=== PATIENT | female | born 1995 | race Caucasian/White ===

== ENCOUNTER 2018-02-14 05:04 | Emergency (ER) | payer OTHER, SELFPAY ==
[2018-02-14 06:50] LABS: Absolute Lymphocytes (CBC) 1.9 K/uL (0.7-4.9); Absolute Monocytes 0.6 K/uL (0.1-1.3); Absolute Neutrophil 3.5 K/uL (1.8-8.0); Eosinophils % 1.9 % (0-4.4); Hematocrit 39.2 % (36.0-45.0); Lymphocytes % 30.8 % (15.3-44.8); MCH 29.7 pg (27.0-35.0); MCV 89.6 fL (80-100); MPV 8.2 fL (7.6-11.3); Monocytes % 9.3 % (3.3-12.3); RBC Red Blood Cell Count 4.38 M/uL (3.86-4.86)
[2018-02-14] MEDS ORDERED: NA CHLORIDE 0.9% 1,000 ML ONE (06:53)
[2018-02-14 07:04] LABS: Bicarbonate 29 mEq/L (21-31); Glucose Level 68 mg/dL (65-120); Lipase 17 U/L (22-51); Potassium 3.5 mEq/L (3.6-5.0); Sodium Level 139 mEq/L (135-145)
[2018-02-14 07:09] LABS: Urine Bacteria <20 /HPF (<20); Urine RBC <5 /HPF (NONE SEEN)
[2018-02-14 07:10] LABS: ALT/SGPT 14 IU/L (10-60); AST/SGOT 17 IU/L (10-42); Albumin 4.4 g/dL (3.2-5.5); Alkaline Phosphatase 52 IU/L (42-121); Amylase Level 43 U/L (28-100); BUN Blood Urea Nitrogen 13 mg/dL (6-20); Bilirubin Direct < 0.1 mg/dL (0-0.2); Bilirubin Total 0.4 mg/dL (0.3-1.2); Glomerular Filtration Rate > 90 mL/min (=/>90); Protein, Total 7.6 g/dL (6.0-8.3)
[2018-02-14 07:10] LABS: Urine Culture Reflex Order NOT NEEDED
[2018-02-14] MEDS ORDERED: ONDANSETRON 4 MG/2 ML VIAL ONE (07:11)
[2018-02-14] MEDS ORDERED: CYCLOBENZAPRINE 10 MG TAB ONE (07:11)
[2018-02-14] MEDS ORDERED: KETOROLAC 30 MG/ML INJ ONE (07:17)
--- NOTE | 2018-02-14 08:21 | RAD REPORT ---
EXAM DESCRIPTION: CT - Stone Protocol - 02/14/2018 7:56 am CLINICAL HISTORY: Abdominal pain. Right flank pain COMPARISON: 2012 TECHNIQUE: Computed axial tomography of the abdomen pelvis was obtained without oral or IV contrast. Lack of IV and oral contrast limits evaluation of solid organs, bowel, and vessels. Coronal reformat radha images were obtained and reviewed. All CT scans are performed using dose optimization technique as appropriate and may include automated exposure control or mA/KV adjustment according to patient size. FINDINGS: A renal calculus is not seen. An ureteral calculus is not noted. A bladder calculus is not present. The liver, spleen, pancreas and adrenals appear grossly normal. A small umbilical hernia is seen. There is no evidence of diverticulitis. The appendix appears normal. A 4.3 centimeter left ovarian cy stic mass is present. Small amount of free fluid is seen IMPRESSION: Negative for a genitourinary calculus 4.3 centimeter left ovarian cystic mass may represent an ovarian cyst or endometrioma. Follow up ultr asound in a couple months is recommended to assess stability
[2018-02-14] MEDS ORDERED: POTASSIUM 25 MEQ EFFERV TAB ONE (09:02)
[2018-02-14 09:36] LABS: Urine Blood NEGATIVE (NEG); Urine Glucose NEGATIVE (NEG); Urine Protein NEGATIVE (NEG); Urine Specific Gravity >1.030 (1.005-1.030); Urine pH 5.5 (5.0-7.0)
--- NOTE | 2018-02-14 10:47 | EDPHYS ---
Physician Documentation [facility] Name: Mary Lou Garcia Age: 22 yrs Sex: Female : 1995 Arrival Date: 02/14/2018 Time: 05:07 Bed 6 Private MD: ED Physician Mino Alonso HPI: 02/14 06:25 This 22 yrs old Female presents to ER via Ambulatory with complaints of Back cp Pain. 06:25 The patient presents with pain that is acute, with no known mechanism of injury. cp 06:25 The symptoms are located in the lumbar area and right low back. cp 06:25 Onset: The symptoms/episode began/occurred 3 day(s) ago. cp 06:25 The pain radiates to the right leg. Associated signs and symptoms: Pertinent negatives: cp abdominal pain, chest pain, constipation, dysuria, fever, incontinence, numbness, urinary retention, weakness. The problem was sustained from unknown cause. 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 - Social history:: Smoking status: unknown. ROS: 06:30 Constitutional: Negative for body aches, chills, fever, poor PO intake. cp 06:30 Eyes: Negative for injury, pain, redness, and discharge. cp 06:30 ENT: Negative for injury, pain, and discharge, Neck: Negative for injury, pain, and cp swelling, Cardiovascular: Negative for chest pain, palpitations, and edema, Respiratory: Negative for shortness of breath, cough, wheezing, and pleuritic chest pain, Abdomen/GI: Negative for abdominal pain, nausea, vomiting, diarrhea, and constipation. 06:30 Back: Positive for pain at rest, pain with movement. 06:30 MS/extremity: Positive for of the right leg, radiating pain, Negative for paresthesias. 06:30 Skin: Negative for cellulitis, rash. 06:30 Neuro: Negative for weakness, saddle anesthesia. 06:30 All other systems are negative. cp Exam: 06:42 Constitutional: The patient appears in no acute distress, alert, awake, non-toxic, well cp developed, well nourished, uncomfortable. 06:42 Head/Face: Normocephalic, atraumatic. cp 06:42 Eyes: Pupils equal round and reactive to light, extra-ocular motions intact. Lids and cp lashes normal. Conjunctiva and sclera are non-icteric and not injected. Cornea within normal limits. Periorbital areas with no swelling, redness, or edema. ENT: Nares patent. No nasal discharge, no septal abnormalities noted. Tympanic membranes are normal and external auditory canals are clear. Oropharynx with no redness, swelling, or masses, exudates, or evidence of obstruction, uvula midline. Mucous membranes moist. Neck: Trachea midline, no thyromegaly or masses palpated, and no cervical lymphadenopathy. Supple, full range of motion without nuchal rigidity, or vertebral point tenderness. No Meningismus. Chest/axilla: Normal chest wall appearance and motion. Nontender with no deformity. No lesions are appreciated. 06:42 Cardiovascular: Rate: normal, Rhythm: regular, Pulses: Pulses are 2+ in right radial artery and left radial artery. Edema: is not appreciated, JVD: is not appreciated. 06:42 Respiratory: the patient does not display signs of respiratory distress, Respirations: normal, no use of accessory muscles, no retractions, no splinting, no tachypnea, labored breathing, is not present, Breath sounds: are clear throughout, no decreased breath sounds, no stridor, no wheezing. 06:42 Abdomen/GI: Inspection: abdomen appears normal, Bowel sounds: active, all quadrants, Palpation: abdomen is soft and non-tender, in all quadrants, rebound tenderness, is not appreciated, voluntary guarding, is not appreciated, involuntary guarding, is not appreciated. 06:42 Back: pain, that is moderate, of the lumbar area and right low back, ROM is painful, with flexion, CVA tenderness, is absent, Straight leg raises: pain bilaterally. 06:42 Skin: cellulitis, is not appreciated, no rash present. cp 06:42 Neuro: Orientation: to person, place \T\ time. Mentation: is normal, Cerebellar function: is grossly normal, Motor: moves all fours, strength is normal, Sensation: no obvious gross deficits, Gait: is steady, Deep tendon reflexes are 2+ (normal) in the right patellar, right Achilles, left patellar and left Achilles. Vital Signs: 05:22 BP 111 / 57; Pulse 72; Resp 18 S; Temp 98.4(O); Pulse Ox 99% on R/A; Weight 86.18 kg bb (R); Height 5 ft. 8 in. (172.72 cm) (R); Pain 10/10; 06:08 BP 106 / 67; Pulse 70; Resp 16; Pulse Ox 100% on R/A; aa1 07:00 BP 126 / 76; Pulse 72; Resp 15; Pulse Ox 100% on R/A; hb 08:00 BP 111 / 57; Pulse 66; Resp 16; Pulse Ox 100% on R/A; hb 09:00 BP 124 / 68; Pulse 67; Resp 16; Pulse Ox 100% on R/A; hb 10:10 BP 97 / 66; Pulse 51; Resp 15; Pulse Ox 100% on R/A; hb 05:22 Body Mass Index 28.89 (86.18 kg, 172.72 cm) MDM: 06:16 Patient medically screened. cp 07:00 Differential diagnosis: Pyelonephritis spinal injury, Ureterolithiasis cauda equina, cp spinal stenosis. 10:45 Data reviewed: vital signs, nurses notes, lab test result(s), radiologic studies, CT cp scan, ultrasound, and as a result, I will discharge patient. 10:45 Counseling: I had a detailed discussion with the patient and/or guardian regarding: the cp historical points, exam findings, and any diagnostic results supporting the discharge/admit diagnosis, lab results, radiology results, the need for outpatient follow up, a family practitioner, an OB/Gyne specialist, to return to the emergency department if symptoms worsen or persist or if there are any questions or concerns that arise at home. 10:45 Response to treatment: the patient's symptoms have mildly improved after treatment, and cp as a result, I will discharge patient. ED course: VSS. Pain improved. Discussed results of CT and US that showed 4.3 cm left ovarian cyst. Patient instructed on need for f/u with gynecology. 02/14 06:22 Order name: Amylase, Serum; Complete Time: 07:17 cp 04/03 06:22 Order name: Basic Metabolic Panel; Complete Time: 07:17 cp 04/ 07:17 Interpretation: Normal except: K 3.5. cp 04/ 06:22 Order name: CBC with Diff; Complete Time: 06:56 cp 04/ 06:56 Interpretation: Reviewed. cp 04 06:22 Order name: Hepatic Function; Complete Time: 07:17 cp 04/ 06:22 Order name: Lipase; Complete Time: 07:17 cp 04/ 07:17 Interpretation: Reviewed. cp 02/14 06:22 Order name: Urine Microscopic Only; Complete Time: 07:17 cp 04/ 07:17 Interpretation: Normal except: UWBC 5-10; SQEPI 20-50. cp 04/ 06:22 Order name: CT Stone Protocol; Complete Time: 08:30 cp 02/14 06:46 Order name: Urine Dipstick--Ancillary (enter results); Complete Time: 09:37 em1 02/14 09:38 Interpretation: Abnormal: U NIT POSITIVE. cp 02/14 06:46 Order name: Urine --Ancillary (enter results); Complete Time: 09:37 em1 02/14 08:40 Order name: US Transvaginal Study (Probe); Complete Time: 10:59 cp 02/14 06:22 Order name: Urine Test (obtain specimen); Complete Time: 06:44 cp 02/14 06:22 Order name: IV Saline Lock; Complete Time: 06:49 cp 02/14 06:22 Order name: Labs collected and sent; Complete Time: 06:49 cp 02/14 06:22 Order name: Urine Dipstick-Ancillary (obtain specimen); Complete Time: 06:44 cp Administered Medications: 06:30 Drug: NS 0.9% 1000 ml Route: IV; Rate: 1 bolus; Site: right antecubital; aa1 07:30 Follow up: Response: No change in condition; IV Status: Completed infusion hb 06:50 Drug: Flexeril 10 mg Route: PO; aa1 07:35 Follow up: Response: No adverse reaction; Pain is decreased hb 06:59 Drug: TORadol 30 mg Route: IVP; Site: right antecubital; aa1 07:30 Follow up: Response: No adverse reaction hb 07:00 Drug: Zofran 4 mg Route: IVP; Site: right antecubital; aa1 07:30 Follow up: Response: No adverse reaction hb 08:46 Drug: Potassium Effervescent Tablet 25 mEq Route: PO; hb 09:30 Follow up: Response: No adverse reaction hb 10:35 Drug: Rocephin - (cefTRIAXone) 1 grams Route: IVPB; Infused Over: 30 mins; Site: right hb antecubital; Disposition: 13:20 Co-signature as Attending Physician, Mino Alonso MD. Disposition: 02/14/18 10:46 Discharged to Home. Impression: Low back pain, Radiculopathy, lumbar region, Unspecified ovarian cysts, Urinary tract infection, site not specified. - Condition is Stable. - Discharge Instructions: Back Pain, Adult, Ovarian Cyst, Urinary Tract Infection, Back Exercises, [id number]. - Prescriptions for Ultracet 37.5- 325 mg Oral Tablet - take 1 tablet by ORAL route every 6 hours - for up to 5 days; do not exceed 8 tablets per day. no driving while taking medication; 15 tablet. Cyclobenzaprine 10 mg Oral Tablet - take 1 tablet by ORAL route every 8 hours As needed no driving while taking medication; 20 tablet. Medrol ([place]) 4 mg Oral Tablets, Dose Pack - take 1 tablet by ORAL route as directed - follow package instructions; 1 packet. Macrobid 100 mg Oral Capsule - take 1 capsule by ORAL route every 12 hours for 7 days; 14 capsule. - Medication Reconciliation Form, Thank You Letter, Antibiotic Education, Prescription Opioid Use, Work release form form. - Follow up: Private Physician; When: 1 - 2 days; Reason: low back pain. Follow up: Paco Ribeiro MD; When: 1 week; Reason: left ovarian cyst. - Problem is new. - Symptoms have improved. Signatures: Dispatcher [employer] Kelly Ceja RN RN aa1 Oxana Shoemaker RN RN bb Smirch, Shelby, RN RN ss Page, Corey, PA PA cp Baxter, Heather, RN RN hb Starr, Gregory, MD MD Corrections: (The following items were deleted from the chart) 06:39 06:22 Creatinine for Radiology+C.LAB.BRZ ordered. EDMS EDMS
--- NOTE | 2018-02-14 10:47 | ER ---
Nurse's Notes [facility] Name: Mary Lou Garcia Age: 22 yrs Sex: Female : 1995 Arrival Date: 02/14/2018 Time: 05:07 Bed 6 Private MD: Diagnosis: Low back pain;Radiculopathy, lumbar region;Unspecified ovarian cysts;Urinary tract infection, site not specified Presentation: 02/14 05:15 Presenting complaint: Patient states: she is having right sided back pain radiating bb down right leg making it go numb pain is 10/10 x 4 days. Transition of care: patient was not received from another setting of care. Onset of symptoms was February 11, 2018. Care prior to arrival: None. 05:15 Method Of Arrival: Ambulatory bb 05:15 Acuity: NABIL 4 bb Triage Assessment: 05:22 General: Appears uncomfortable, Behavior is calm, cooperative. Pain: Complains of pain bb in back Pain radiates to right leg Pain currently is 10 out of 10 on a pain scale. Pain began 4 days ago. Neuro: Level of Consciousness is awake, alert, obeys commands, Oriented to person, place, time, situation. Cardiovascular: No deficits noted. Respiratory: Airway is patent Respiratory effort is even, unlabored. GI: No signs and/or symptoms were reported involving the gastrointestinal system. Derm: Skin is pink, warm \T\ dry. Musculoskeletal: Circulation, motion, and sensation intact. 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 - Social history:: Smoking status: unknown. Screenin:26 Abuse screen: Denies threats or abuse. Nutritional screening: No deficits noted. bb Tuberculosis screening: No symptoms or risk factors identified. Fall Risk None identified. Assessment: 05:26 Reassessment: No changes from previously documented assessment. see triage note. bb 06:08 Reassessment: Patient appears in no apparent distress at this time. Patient and/or aa1 family updated on plan of care and expected duration. Pain level reassessed. Patient is alert, oriented x 3, equal unlabored respirations, skin warm/dry/pink. Awaiting initial assessment by provider. 07:15 Reassessment: Patient appears in no apparent distress at this time. Patient and/or hb family updated on plan of care and expected duration. Pain level reassessed. Patient is alert, oriented x 3, equal unlabored respirations, skin warm/dry/pink. 08:00 Reassessment: Patient appears in no apparent distress at this time. No changes from hb previously documented assessment. Patient and/or family updated on plan of care and expected duration. Pain level reassessed. Patient is alert, oriented x 3, equal unlabored respirations, skin warm/dry/pink. 09:00 Reassessment: Patient appears in no apparent distress at this time. No changes from hb previously documented assessment. Patient and/or family updated on plan of care and expected duration. Pain level reassessed. Patient is alert, oriented x 3, equal unlabored respirations, skin warm/dry/pink. 10:00 Reassessment: Patient appears in no apparent distress at this time. No changes from hb previously documented assessment. Patient and/or family updated on plan of care and expected duration. Pain level reassessed. Patient is alert, oriented x 3, equal unlabored respirations, skin warm/dry/pink. Vital Signs: 05:22 BP 111 / 57; Pulse 72; Resp 18 S; Temp 98.4(O); Pulse Ox 99% on R/A; Weight 86.18 kg bb (R); Height 5 ft. 8 in. (172.72 cm) (R); Pain 10/10; 06:08 BP 106 / 67; Pulse 70; Resp 16; Pulse Ox 100% on R/A; aa1 07:00 BP 126 / 76; Pulse 72; Resp 15; Pulse Ox 100% on R/A; hb 08:00 BP 111 / 57; Pulse 66; Resp 16; Pulse Ox 100% on R/A; hb 09:00 BP 124 / 68; Pulse 67; Resp 16; Pulse Ox 100% on R/A; hb 10:10 BP 97 / 66; Pulse 51; Resp 15; Pulse Ox 100% on R/A; hb 05:22 Body Mass Index 28.89 (86.18 kg, 172.72 cm) bb ED Course: 05:07 Patient arrived in ED. al2 05:15 Oxana Shoemaker RN is Primary Nurse. bb 05:19 Triage completed. bb 05:22 Arm band placed on Patient placed in an exam room, on a stretcher, on pulse oximetry. bb 05:26 Patient has correct armband on for positive identification. Bed in low position. Call bb light in reach. Side rails up X 1. Pulse ox on. NIBP on. 06:15 Delroy Parker PA is PHCP. cp 06:15 Mino Alonso MD is Attending Physician. cp 06:30 Initial lab(s) drawn, by me, sent to lab. Urine collected: clean catch specimen, clear. aa1 Inserted saline lock: 20 gauge in right antecubital area, using aseptic technique. Blood collected. 07:07 Report given to Darby MATTA. bb 07:54 CT completed. Patient tolerated procedure well. Patient moved to CT via wheelchair. jg1 Patient moved back from CT. 07:56 CT Stone Protocol In Process Unspecified. EDMS 08:57 US Transvaginal Study (Probe) In Process Unspecified. EDMS 09:14 Primary Nurse role handed off by Oxana Shoemaker RN hb 09:14 Darby Schneider, SIGRID is Primary Nurse. hb 10:45 Paco Ribeiro MD is Referral Physician. cp Administered Medications: 06:30 Drug: NS 0.9% 1000 ml Route: IV; Rate: 1 bolus; Site: right antecubital; aa1 07:30 Follow up: Response: No change in condition; IV Status: Completed infusion hb 06:50 Drug: Flexeril 10 mg Route: PO; aa1 07:35 Follow up: Response: No adverse reaction; Pain is decreased hb 06:59 Drug: TORadol 30 mg Route: IVP; Site: right antecubital; aa1 07:30 Follow up: Response: No adverse reaction hb 07:00 Drug: Zofran 4 mg Route: IVP; Site: right antecubital; aa1 07:30 Follow up: Response: No adverse reaction hb 08:46 Drug: Potassium Effervescent Tablet 25 mEq Route: PO; hb 09:30 Follow up: Response: No adverse reaction hb 10:35 Drug: Rocephin - (cefTRIAXone) 1 grams Route: IVPB; Infused Over: 30 mins; Site: right hb antecubital; Outcome: 10:46 Discharge ordered by . kareen 11:20 Patient left the ED. ss Signatures: Dispatcher [employer] EDKelly Davison RN RN aaEmmy Amin Brenda, RN RN Maria Del Carmen Jones RN RN ss Delroy Parker PA PA cp Baxter, Heather, RN RN hb Love, Angelica al2
[2018-02-14] MEDS ORDERED: CEFTRIAXONE/SWI 1gm 1 GM/10 ML SYR ONE (10:53)
--- NOTE | 2018-02-14 10:58 | RAD REPORT ---
EXAM DESCRIPTION: US - Transvaginal Study Probe - 02/14/2018 8:59 am CLINICAL HISTORY: Patient provided history of left ovarian mass, right oophorectomy, history of poly cystic ovaries and endometriosis, abnormal CT study COMPARISON: CT study February 14 TECHNIQUE: Endovaginal sonography was performed. FINDINGS: Endometrial stripe is 4 mm. Endometrium-myometrium interface is normal with no endometrial mass or polyp. No hemorrhage or fluid within the endometrial cavity. No myometrial mass identifiable . Uterus is 7.2 x 3.6 x 5.0 cm. No hemorrhage or fluid in the cul-de-sac. Right ovary is not identified matching the patient provided surgical history. No right adnexal mass seen. Left ovary is enlarged measuring 7.7 x 4.5 x 4.2 cm. Ovary is enlarged by a thin wall 4.3 centimeter cyst. There is posterior acoustic shadowing. Within this cyst is a 1.4 centimeter oval solid componen t. Doppler evaluation shows no blood flow within the solid component. This is favored to be a dominan t cyst with a solid mass likely representing cellular debris or blood clot from intracystic hemorrhag e. Sonographic characteristics are not typical for endometrioma. IMPRESSION: Approximately 4.3 centimeter left ovarian cystic mass with 14 millimeter solid component internally. Mass is favored to be a cyst with retracted blood clot. Cystic mass is not classic for endometrioma. Followup sonography in 2-3 menstrual cycles could be performed to monitor for involution or resolutio n of this mass. No uterine abnormality. Right ovary is absent. No right adnexal abnormality.
[2018-02-14 11:27] VITALS: TEMP 98.4
[2018-02-14 11:28] VITALS: O2SAT 100
[2018-02-14 11:32] VITALS: BP 97/66
== END 2018-02-14 11:20 | disposition home or self-care (01) ==
LOC: ER 05:04
DX: M54.16 Radiculopathy, lumbar region (principal); N39.0 Urinary tract infection, site not specified; N83.209 Unspecified ovarian cyst, unspecified side; F31.9 Bipolar disorder, unspecified; Z88.2 Allergy status to sulfonamides
CPT/HCPCS: 36415; 74176; 76377; 76830; 80048; 80076; 81003; 81015; 81025; 82150; 83690; 85025; 96361; 96374; 96375; 99284; J0696; J2405; J7030

== ENCOUNTER 2018-07-10 22:38 | Emergency (ER) | payer SELFPAY ==
[2018-07-10] MEDS ORDERED: KETOROLAC 30 MG/ML INJ ONE (23:24)
[2018-07-10 23:41] LABS: Urine Blood NEGATIVE (NEG); Urine Glucose NEGATIVE (NEG); Urine Protein NEGATIVE (NEG); Urine Specific Gravity 1.025 (1.005-1.030); Urine pH 6.5 (5.0-7.0)
--- NOTE | 2018-07-11 00:06 | ER ---
Nurse's Notes [facility] Name: Mary Lou Garcia Age: 22 yrs Sex: Female : 1995 Arrival Date: 07/10/2018 Time: 22:41 Bed 26 Private MD: Diagnosis: Muscle spasm Presentation: 07/10 22:48 Presenting complaint: Patient states: left rib pain, middle and upper back pain with ak1 SOB intermittent since yesterday. pt stated she has a current UTI, no medications being taken. Transition of care: patient was not received from another setting of care. Onset of symptoms was July 09, 2018. Risk Assessment: Do you want to hurt yourself or someone else? Patient reports no desire to harm self or others. Initial Sepsis Screen: Does the patient meet any 2 criteria? No. Patient's initial sepsis screen is negative. Does the patient have a suspected source of infection? No. Patient's initial sepsis screen is negative. Care prior to arrival: None. 22:48 Method Of Arrival: Ambulatory ak1 22:48 Acuity: NABIL 3 ak1 Triage Assessment: 22:51 General: Appears in no apparent distress. Behavior is calm, cooperative. Pain: ak1 Complains of pain in left ribs, left flank, mid and upper back. 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 - Social history:: Smoking status: Patient/guardian denies using tobacco. - Ebola Screening: : No symptoms or risks identified at this time. Screenin:53 Abuse screen: Denies threats or abuse. Denies injuries from another. Nutritional ak1 screening: No deficits noted. Tuberculosis screening: No symptoms or risk factors identified. Fall Risk None identified. Assessment: 22:52 Pain: mid/upper back, left flank, left rib pain Pain began 1 day ago. ak1 22:54 Cardiovascular: Reports shortness of breath, pt c/o left rib pain, left flank pain and ak1 back pain Denies nausea, vomiting. 22:54 General: Appears in no apparent distress. uncomfortable. Neuro: Level of Consciousness mg2 is awake, alert, obeys commands, Oriented to person, place, time, situation. Cardiovascular: Capillary refill < 3 seconds Patient's skin is warm and dry. Respiratory: Airway is patent Respiratory effort is even, unlabored, Respiratory pattern is regular, symmetrical. GI: Abdomen is flat. : Reports with uti but not on any medication. EENT: No signs and/or symptoms were reported regarding the EENT system. Derm: Skin is intact, Skin is pink, warm \T\ dry. normal. Musculoskeletal: Circulation, motion, and sensation intact. Reports pain in left rib cage radiating to the back. 22:56 Respiratory: Reports shortness of breath on exertion. mg2 07/11 00:23 Reassessment: Patient appears in no apparent distress at this time. Patient and/or mg2 family updated on plan of care and expected duration. Pain level reassessed. Patient is alert, oriented x 3, equal unlabored respirations, skin warm/dry/pink. Vital Signs: 07/10 22:51 BP 111 / 63; Pulse 64; Resp 22; Temp 98.4; Pulse Ox 99% on R/A; Weight 81.65 kg (R); ak1 Height 5 ft. 8 in. (172.72 cm) (R); Pain 10/10; 23:38 BP 95 / 72; Pulse 65; Resp 18; Pulse Ox 97% on R/A; mg2 07/11 00:24 BP 105 / 75; Pulse 65; Resp 18; Pulse Ox 100% on R/A; Pain 0/10; mg2 07/10 22:51 Body Mass Index 27.37 (81.65 kg, 172.72 cm) ak1 ED Course: 07/10 22:41 Patient arrived in ED. am2 22:49 Triage completed. ak1 22:51 Arm band placed on Patient placed in an exam room, on a stretcher, on pulse oximetry, ak1 Patient notified of wait time. 22:53 Patient has correct armband on for positive identification. Bed in low position. Call ak1 light in reach. Side rails up X 1. Adult w/ patient. Pulse ox on. NIBP on. 22:53 Patient maintains SpO2 saturation greater than 95% on room air. ak1 22:58 Pipo Fabian, RN is Primary Nurse. mg2 23:06 Kristofer Castro PA is PHCP. jr8 23:06 Torin Lopez MD is Attending Physician. jr8 23:28 X-ray completed. Portable x-ray completed in exam room. Patient tolerated procedure kw well. 23:29 XRAY Chest (1 view) In Process Unspecified. EDMS 07/11 00:23 No provider procedures requiring assistance completed. Patient did not have IV access mg2 during this emergency room visit. Administered Medications: 07/10 23:23 Drug: TORadol 60 mg Route: IM; Site: left gluteus; mg2 07/11 00:25 Follow up: Response: No adverse reaction; Marked relief of symptoms mg2 Outcome: 00:05 Discharge ordered by . jr8 00:23 Discharged to home ambulatory, with family. mg2 00:23 Condition: stable 00:23 Discharge instructions given to patient, Instructed on discharge instructions, follow up and referral plans. medication usage, Demonstrated understanding of instructions, follow-up care, medications, Prescriptions given X 2. 00:25 Patient left the ED. mg2 Signatures: Dispatcher [employer] EDNH Meka Dickson Kristofer Castro PA PA jr8 Annelise Bernstein RN RN ak1 Hilary Gutierrez am2 Pipo Fabian, RN RN mg2
--- NOTE | 2018-07-11 00:06 | EDPHYS ---
Physician Documentation [facility] Name: Mary Lou Garcia Age: 22 yrs Sex: Female : 1995 Arrival Date: 07/10/2018 Time: 22:41 Bed 26 Private MD: ED Physician Torin Lopez HPI: 07/10 23:20 This 22 yrs old Female presents to ER via Ambulatory with complaints of left jr8 rib pain, back pain. 23:20 Patient stated that she cannot take a deep breath due to left rib pain and back pain. jr8 Started tonight. Hurts to move as well. Denies trauma or fevers. Has had mild cough. Severity of symptoms: At their worst the symptoms were mild in the emergency department the symptoms are unchanged. The patient has not experienced similar symptoms in the past. The patient has not recently seen a physician. 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 - Social history:: Smoking status: Patient/guardian denies using tobacco. - Ebola Screening: : No symptoms or risks identified at this time. ROS: 23:20 Eyes: Negative for injury, pain, redness, and discharge, ENT: Negative for injury, jr8 pain, and discharge, Neck: Negative for injury, pain, and swelling, Respiratory: Negative for shortness of breath, cough, wheezing, and pleuritic chest pain, Abdomen/GI: Negative for abdominal pain, nausea, vomiting, diarrhea, and constipation, Back: Negative for injury and pain, MS/Extremity: Negative for injury and deformity, Skin: Negative for injury, rash, and discoloration, Neuro: Negative for headache, weakness, numbness, tingling, and seizure. 23:20 Cardiovascular: Positive for chest pain, with movement, Negative for edema, orthopnea, palpitations, paroxysmal nocturnal dyspnea. Exam: 23:20 Eyes: Pupils equal round and reactive to light, extra-ocular motions intact. Lids and jr8 lashes normal. Conjunctiva and sclera are non-icteric and not injected. Cornea within normal limits. Periorbital areas with no swelling, redness, or edema. ENT: Nares patent. No nasal discharge, no septal abnormalities noted. Tympanic membranes are normal and external auditory canals are clear. Oropharynx with no redness, swelling, or masses, exudates, or evidence of obstruction, uvula midline. Mucous membranes moist. Neck: Trachea midline, no thyromegaly or masses palpated, and no cervical lymphadenopathy. Supple, full range of motion without nuchal rigidity, or vertebral point tenderness. No Meningismus. Chest/axilla: Normal chest wall appearance and motion. Nontender with no deformity. No lesions are appreciated. Cardiovascular: Regular rate and rhythm with a normal S1 and S2. No gallops, murmurs, or rubs. Normal PMI, no JVD. No pulse deficits. Respiratory: Lungs have equal breath sounds bilaterally, clear to auscultation and percussion. No rales, rhonchi or wheezes noted. No increased work of breathing, no retractions or nasal flaring. Abdomen/GI: Soft, non-tender, with normal bowel sounds. No distension or tympany. No guarding or rebound. No evidence of tenderness throughout. Back: No spinal tenderness. No costovertebral tenderness. Full range of motion. Skin: Warm, dry with normal turgor. Normal color with no rashes, no lesions, and no evidence of cellulitis. MS/ Extremity: Pulses equal, no cyanosis. Neurovascular intact. Full, normal range of motion. Neuro: Awake and alert, GCS 15, oriented to person, place, time, and situation. Cranial nerves II-XII grossly intact. Motor strength 5/5 in all extremities. Sensory grossly intact. Cerebellar exam normal. Normal gait. Vital Signs: 22:51 BP 111 / 63; Pulse 64; Resp 22; Temp 98.4; Pulse Ox 99% on R/A; Weight 81.65 kg (R); ak1 Height 5 ft. 8 in. (172.72 cm) (R); Pain 10/10; 23:38 BP 95 / 72; Pulse 65; Resp 18; Pulse Ox 97% on R/A; mg2 07/11 00:24 BP 105 / 75; Pulse 65; Resp 18; Pulse Ox 100% on R/A; Pain 0/10; mg2 07/10 22:51 Body Mass Index 27.37 (81.65 kg, 172.72 cm) ak1 MDM: 07/10 23:06 Patient medically screened. 8 07/11 00:04 Data reviewed: vital signs, nurses notes, lab test result(s), radiologic studies, plain [facility] films, and as a result, I will discharge patient. Data interpreted: Pulse oximetry: on room air is 97 %. Interpretation: normal. Counseling: I had a detailed discussion with the patient and/or guardian regarding: the historical points, exam findings, and any diagnostic results supporting the discharge/admit diagnosis, lab results, radiology results, the need for outpatient follow up, a family practitioner, to return to the emergency department if symptoms worsen or persist or if there are any questions or concerns that arise at home. 07/10 23:07 Order name: Urine Dipstick--Ancillary (enter results) [facility] 07/10 23:07 Order name: Urine --Ancillary (enter results); Complete Time: 23:57 [facility] 07/10 23:07 Order name: Urine Dipstick-Ancillary; Complete Time: 23:57 EDIA 07/10 23:18 Order name: XRAY Chest (1 view) [facility] Administered Medications: 07/10 23:23 Drug: TORadol 60 mg Route: IM; Site: left gluteus; mg2 07/11 00:25 Follow up: Response: No adverse reaction; Marked relief of symptoms mg2 Disposition: 07/11/18 00:05 Discharged to Home. Impression: Muscle spasm. - Condition is Stable. - Discharge Instructions: Muscle Cramps and Spasms. - Prescriptions for Ibuprofen 800 mg Oral Tablet - take 1 tablet by ORAL route every 12 hours As needed take with food; 20 tablet. Cyclobenzaprine 10 mg Oral Tablet - take 1 tablet by ORAL route every 8 hours As needed; 30 tablet. - Medication Reconciliation Form, Thank You Letter, Antibiotic Education, Prescription Opioid Use, Work release form form. - Follow up: Private Physician; When: 2 - 3 days; Reason: Recheck today's complaints, Continuance of care, Re-evaluation by your physician. - Problem is new. - Symptoms have improved. Addendum: 07/12/2018 06:26 Co-signature as Attending Physician, Torin Lopez MD I agree with the assessment and t w4 plan of care. Attestation: The patient's history, exam findings, diagnostics, and a summary of any interventions or procedures was reviewed in detail with Kristofer MOSELEY. Signatures: Dispatcher [employer] EDIA Kristofer Castro PA PA jr8 Annelise Bernstein RN RN ak1 Torin Lopez MD MD tw4 Pipo Fabian, SIGRID RN mg2 Corrections: (The following items were deleted from the chart) 07/11 00:25 00:05 07/11/2018 00:05 Discharged to Home. Impression: Muscle spasm. Condition is mg2 Stable. Forms are Medication Reconciliation Form, Thank You Letter, Antibiotic Education, Prescription Opioid Use. Follow up: Private Physician; When: 2 - 3 days; Reason: Recheck today's complaints, Continuance of care, Re-evaluation by your physician. Problem is new. Symptoms have improved. jr8
[2018-07-11 00:36] VITALS: TEMP 98.4
[2018-07-11 00:38] VITALS: BP 105/75; O2SAT 100
--- NOTE | 2018-07-11 08:35 | RAD REPORT ---
EXAM DESCRIPTION: RAD - Chest Single View - 07/10/2018 11:30 pm CLINICAL HISTORY: PAIN<Reason For Exam>PAIN Mid and upper back pain with shortness of breath COMPARISON: CHEST PA AND LAT 2 VIEW dated 02/12/2012<Comparisons> TECHNIQUE: AP portable chest image was obtained 2318 hours . FINDINGS: Lungs are clear. Heart and vasculature are normal. No measurable pleural effusion and no p neumothorax. No gross bony abnormality seen. No acute aortic findings suspected. IMPRESSION: No acute cardiopulmonary process. No significant change.
== END 2018-07-11 00:25 | disposition home or self-care (01) ==
LOC: ER 22:38
DX: M62.838 Other muscle spasm (principal); F31.9 Bipolar disorder, unspecified; Z88.2 Allergy status to sulfonamides
CPT/HCPCS: 71045; 81003; 81025; 96372; 99284

== ENCOUNTER 2019-02-25 18:46 | Emergency (ER) | payer SELFPAY ==
[2019-02-25 19:32] LABS: Urine Blood NEGATIVE (NEG); Urine Glucose NEGATIVE (NEG); Urine Protein NEGATIVE (NEG); Urine Specific Gravity 1.025 (1.005-1.030); Urine pH 6.5 (5.0-7.0)
[2019-02-25 19:33] LABS: Absolute Monocytes 0.6 K/uL (0.1-1.3); Absolute Neutrophil 5.1 K/uL (1.8-8.0); Basophils % 0.7 % (0-1.3); Eosinophils % 0.9 % (0-4.4); Hematocrit 38.1 % (36.0-45.0); Lymphocytes % 33.9 % (15.3-44.8); MPV 8.4 fL (7.6-11.3); Monocytes % 6.8 % (3.3-12.3); RBC Red Blood Cell Count 4.19 M/uL (3.86-4.86)
[2019-02-25 19:40] LABS: Urine Bacteria >50 /HPF (<20); Urine Culture Reflex Order REFLEXED; Urine RBC <5 /HPF (NONE SEEN)
[2019-02-25] MEDS ORDERED: ONDANSETRON 4 MG/2 ML VIAL ONE (19:47)
[2019-02-25] MEDS ORDERED: MORPHINE 4 MG/ML SYR ONE (19:47)
[2019-02-25 19:50] LABS: Albumin 4.1 g/dL (3.4-5.0); Bilirubin Direct 0.1 mg/dL (0-0.2); Bilirubin Total 0.4 mg/dL (0.2-1.0); Potassium 3.4 mmol/L (3.5-5.1); Protein, Total 7.6 g/dL (6.4-8.2)
--- NOTE | 2019-02-25 20:30 | RAD REPORT ---
EXAM DESCRIPTION: CT - Stone Protocol - 02/25/2019 7:54 pm CLINICAL HISTORY: Abdominal pain, pelvic pain COMPARISON: CT February 2018 TECHNIQUE: Axial 5 mm thick images were obtained without oral or IV contrast. The [id number] span s the entirety of the system partially obscuring uppermost abdomen and lung bases. All CT scans are performed using dose optimization technique as appropriate and may include automated exposure control or mA/KV adjustment according to patient size. FINDINGS: No hydronephrosis is present and no obstructing ureteral calculi. No suspicious renal mass es. Isodense masses and pyelonephritis are not excluded on a stone protocol CT scan. No urinary bladd er suspicious finding. No significant adrenal finding. No uterus abnormality. There is a small to mod erate amount of fluid and hyperdense material in the cul de sac in each adnexum. The hyperdense mater ial is most likely blood. Patient most likely has a a ruptured left ovarian hemorrhagic cyst. No fall opian tube dilatation. Imaged portions of the liver, spleen and pancreas show no suspicious findings on non-contrast imaging . No gallbladder or biliary tree abnormality identified. No suspicious bowel findings. Appendix is normal. No hernia, mass or bulky lymphadenopathy noted. No free air, free fluid or inflammatory stranding. No significant bony abnormality. IMPRESSION: Free fluid and blood in the cul-de-sac and bilateral adnexa most likely from a ruptured hemorrhagic left ovarian cyst. No hydronephrosis or obstructing calculus. No acute finding seen. Isodense masses and pyelonephritis are not excluded on stone protocol technique.
[2019-02-25] MEDS ORDERED: MEPERIDINE HCL 25 MG/0.5 ML ONE (20:31)
--- NOTE | 2019-02-25 21:13 | RAD REPORT ---
EXAM DESCRIPTION: US - Pelvis Complete - 02/25/2019 7:57 pm CLINICAL HISTORY: Pelvic pain COMPARISON: None. TECHNIQUE: Endovaginal sonography performed FINDINGS: Exam was limited. Patient was in substantial pain limiting optimal visualization. Patient has for the exam be terminated. Patient reports right ovary removed. No right adnexal mass identified. Endometrial stripe is 11 mm. N o focal endometrial abnormality identifiable. No myometrial mass. Uterus is 9.0 x 3.7 x 4.5 cm. Free fluid is seen in the cul de sac. There is focal soft tissue echogenicity present. Blood flow was demo nstrated in the left ovary. CT and sonogram findings are suspicious for a hemorrhagic or ruptured ova matheus cyst. The collapsed or ruptured cyst is not clearly evident on this study. No fallopian tube dil atation. No finding to suspect ectopic . IMPRESSION: Fluid and blood in the cul-de-sac and adnexa. Etiology is likely a hemorrhagic, ruptured ovarian cyst though this cyst itself is not specifically i dentified. No other worrisome adnexal mass. Uterus is unremarkable.
[2019-02-25] MEDS ORDERED: NITROFURAN MACRO 100 MG CAP PO ONE (21:24)
--- NOTE | 2019-02-25 21:47 | EDPHYS ---
Physician Documentation [facility] Name: Mary Lou Garcia Age: 23 yrs Sex: Female : 1995 Arrival Date: 02/25/2019 Time: 18:47 Bed 26 Private MD: ED Physician Reji Echeverria HPI: 02/25 20:04 This 23 yrs old Female presents to ER via Wheelchair with complaints of rn Pelvic Pain. 20:04 The patient presents with abdominal pain in the lower abdomen. Onset: The rn symptoms/episode began/occurred just prior to arrival. The symptoms do not radiate. Associated signs and symptoms: Pertinent positives: nausea, Pertinent negatives: blood in stools, constipation, dysuria, fever, vaginal discharge. The symptoms are described as sharp, shooting, stabbing. Modifying factors: The symptoms are alleviated by nothing, the symptoms are aggravated by movement, touching the area. Severity of pain: At its worst the pain was moderate in the emergency department the pain is unchanged. The patient has not experienced similar symptoms in the past. Reports acute onset pelvic pain, feels like uterus is on fire, shoots to her vagina, reports sudden onset after sex, reports has PCOS and only left ovary. Also has hx of kidney stones. No vaginal bleeding.. 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 - Social history:: Smoking status: Patient/guardian denies using tobacco. - Ebola Screening: : No symptoms or risks identified at this time. - Family history:: not pertinent. - Hospitalizations: : No recent hospitalization is reported. ROS: 20:04 Constitutional: Negative for fever, chills, and weight loss, Eyes: Negative for injury, rn pain, redness, and discharge, Neck: Negative for injury, pain, and swelling, Cardiovascular: Negative for chest pain, palpitations, and edema, Respiratory: Negative for shortness of breath, cough, wheezing, and pleuritic chest pain, Abdomen/GI: + pelvic pain and nausea Back: Negative for injury and pain, : Negative for injury, bleeding, discharge, and swelling, MS/Extremity: Negative for injury and deformity, Neuro: Negative for headache, weakness, numbness, tingling, and seizure. Exam: 20:04 Constitutional: This is a well developed, well nourished patient who is awake, alert, rn writhing in pain Head/Face: Normocephalic, atraumatic. Eyes: Pupils equal round and reactive to light, extra-ocular motions intact. Lids and lashes normal. Conjunctiva and sclera are non-icteric and not injected. Cornea within normal limits. Periorbital areas with no swelling, redness, or edema. ENT: MMM Cardiovascular: Regular rate and rhythm. No pulse deficits. Respiratory: Lungs have equal breath sounds bilaterally, clear to auscultation Abdomen/GI: soft, + tenderness with guarding of LLQ and suprapubic region Skin: Warm, dry MS/ Extremity: Pulses equal, no cyanosis. Neurovascular intact. Full, normal range of motion. Equal circumference. Neuro: Awake and alert, GCS 15, oriented to person, place, time, and situation. Cranial nerves II-XII grossly intact. Motor strength 5/5 in all extremities. Sensory grossly intact. Vital Signs: 18:52 BP 104 / 64; Pulse 97; Resp 18 S; Temp 98.8(TE); Pulse Ox 100% on R/A; Weight 72.57 kg aa5 (R); Height 5 ft. 8 in. (172.72 cm) (R); 21:20 BP 99 / 72; Pulse 64; Resp 17 S; Pulse Ox 98% on R/A; ca1 18:52 Body Mass Index 24.33 (72.57 kg, 172.72 cm) aa5 MDM: 19:02 Patient medically screened. rn 21:46 Differential diagnosis: diverticulitis, Ectopic , Endometriosis, non-specific rn abd pain, Ovarian Torsion, Tubal Ovarian Abcess, Ureterolithiasis, urinary tract infection, ruptured ovarian cyst. Data reviewed: vital signs, nurses notes, lab test result(s), radiologic studies, CT scan, ultrasound, and as a result, I will discharge patient. Counseling: I had a detailed discussion with the patient and/or guardian regarding: the historical points, exam findings, and any diagnostic results supporting the discharge/admit diagnosis, lab results, radiology results, the need for outpatient follow up, to return to the emergency department if symptoms worsen or persist or if there are any questions or concerns that arise at home. Response to treatment: the patient's symptoms have mildly improved after treatment, and as a result, I will discharge patient. Special discussion: Based on the patient's Hx, exam, and Dx evaluation, there is no indication for emergent surgery or inpatient Tx. It is understood by the patient/guardian that if the Sx's persist or worsen they need to return immediately for re-evaluation. I discussed with the patient/guardian in detail that at this point there is no indication for admission to the hospital. It is understood, however, that if the symptoms persist or worsen the patient needs to return immediately for re-evaluation. 02/25 19:08 Order name: Basic Metabolic Panel; Complete Time: 20:51 02/25 19:08 Order name: CBC with Diff; Complete Time: 20:51 02/25 19:08 Order name: Hepatic Function; Complete Time: 20:51 02/25 19:08 Order name: Lipase; Complete Time: 20:51 02/25 19:08 Order name: Urine Microscopic Only; Complete Time: 20:51 02/25 19:22 Order name: Urine Dipstick--Ancillary (enter results); Complete Time: 20:[address] [facility] 02/25 19:08 Order name: US Pelvis Complete; Complete Time: 21:31 rn 02/25 19:08 Order name: CT Stone Protocol; Complete Time: 20:51 02/25 19:22 Order name: Urine --Ancillary (enter results); Complete Time: 20:[address] [facility] 02/25 19:42 Order name: Urine Culture [facility] 02/25 19:08 Order name: IV Saline Lock; Complete Time: 19:17 rn 02/25 19:08 Order name: Labs collected and sent; Complete Time: 19:17 02/25 19:08 Order name: Urine Test (obtain specimen); Complete Time: 19:17 02/25 19:08 Order name: Urine Dipstick-Ancillary (obtain specimen); Complete Time: 19:17 rn Administered Medications: 19:31 Drug: Zofran 4 mg Route: IVP; Site: right antecubital; ca1 21:19 Follow up: Response: No adverse reaction; Nausea is decreased ca1 19:33 Drug: morphine 4 mg Route: IVP; Site: right antecubital; ca1 20:15 Follow up: Response: No adverse reaction; Pain is unchanged, physician notified ca1 20:21 Drug: Demerol 25 mg Route: IVP; Site: right antecubital; ca1 21:19 Follow up: Response: No adverse reaction; Pain is decreased ca1 21:10 Drug: Macrobid 100 mg Route: PO; ca1 21:40 Follow up: Response: No adverse reaction ca1 Disposition: 02/25/19 21:47 Discharged to Home. Impression: Other ovarian cysts - Ruptured hemorrhagic. - Condition is Stable. - Discharge Instructions: Ovarian Cyst, Urinary Tract Infection, Adult. - Prescriptions for Tylenol- Codeine #3 300-30 mg Oral Tablet - take 1 tablet by ORAL route every 6 hours As needed; 15 tablet. Diclofenac Sodium 75 mg Oral Tablet, Delayed Release (E.C.) - take 1 tablet by ORAL route 2 times per day; 20 tablet. Macrobid 100 mg Oral Capsule - take 1 capsule by ORAL route every 12 hours for 7 days; 14 capsule. - Medication Reconciliation Form, Thank You Letter, Antibiotic Education, Prescription Opioid Use form. - Follow up: Private Physician; When: As needed; Reason: Recheck today's complaints, Re-evaluation by your physician. - Problem is new. - Symptoms have improved. Signatures: Dispatcher [employer] EDMS Reji Echeverria MD MD rn Calderon, Audri RN RN aa5 Evon Bravo RN RN ca1 Corrections: (The following items were deleted from the chart) 22:08 21:47 02/25/2019 21:47 Discharged to Home. Impression: Other ovarian cysts - Ruptured ca1 hemorrhagic. Condition is Stable. Forms are Medication Reconciliation Form, Thank You Letter, Antibiotic Education, Prescription Opioid Use. Follow up: Private Physician; When: As needed; Reason: Recheck today's complaints, Re-evaluation by your physician. Problem is new. Symptoms have improved. rn
--- NOTE | 2019-02-25 21:47 | ER ---
Nurse's Notes [facility] Name: Mary Lou Garcia Age: 23 yrs Sex: Female : 1995 Arrival Date: 02/25/2019 Time: 18:47 Bed 26 Private MD: Diagnosis: Other ovarian cysts-Ruptured hemorrhagic Presentation: 02/25 18:50 Presenting complaint: Patient states: "I just had sex and started having a sharp aa5 shooting pain in my vagina shooting up to my uterus". Pt states "I have an cyst and I have endometriosis". Pt states "my period is also about 14 days late". Transition of care: patient was not received from another setting of care. Onset of symptoms was February 25, 2019. Risk Assessment: Do you want to hurt yourself or someone else? Patient reports no desire to harm self or others. Initial Sepsis Screen: Does the patient meet any 2 criteria? No. Patient's initial sepsis screen is negative. Does the patient have a suspected source of infection? No. Patient's initial sepsis screen is negative. Care prior to arrival: None. 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 - Social history:: Smoking status: Patient/guardian denies using tobacco. - Ebola Screening: : No symptoms or risks identified at this time. - Family history:: not pertinent. - Hospitalizations: : No recent hospitalization is reported. Screenin:05 Abuse screen: Denies threats or abuse. Denies injuries from another. Nutritional ca1 screening: No deficits noted. Tuberculosis screening: No symptoms or risk factors identified. Fall Risk None identified. Assessment: 19:05 General: Appears in no apparent distress. comfortable, Behavior is crying. Pain: ca1 Complains of pain in abdomen Pain currently is 10 out of 10 on a pain scale. Neuro: Level of Consciousness is awake, alert, obeys commands, Oriented to person, place, time, situation. Cardiovascular: Heart tones S1 S2 present Capillary refill < 3 seconds Patient's skin is warm and dry. Respiratory: Airway is patent Respiratory effort is even, unlabored, Respiratory pattern is regular, symmetrical, Breath sounds are clear bilaterally. GI: Abdomen is flat, non-distended, Bowel sounds present X 4 quads. Abd is soft X 4 quads Abdomen is tender to palpation in right lower quadrant and left lower quadrant. : No deficits noted. No signs and/or symptoms were reported regarding the genitourinary system. EENT: No deficits noted. No signs and/or symptoms were reported regarding the EENT system. Derm: Skin is intact, is healthy with good turgor, Skin is pink, warm \\T\\ dry. Musculoskeletal: Circulation, motion, and sensation intact. Capillary refill < 3 seconds. 20:00 Reassessment: Patient appears in no apparent distress at this time. Patient and/or ca1 family updated on plan of care and expected duration. Pain level reassessed. Patient is alert, oriented x 3, equal unlabored respirations, skin warm/dry/pink. 21:00 Reassessment: Patient appears in no apparent distress at this time. Patient and/or ca1 family updated on plan of care and expected duration. Pain level reassessed. Patient is alert, oriented x 3, equal unlabored respirations, skin warm/dry/pink. Patient states feeling better. 21:20 Reassessment: Pt eating a sandwich. Reports feeling less pain and better. No N/V ca1 reported. Vital Signs: 18:52 BP 104 / 64; Pulse 97; Resp 18 S; Temp 98.8(TE); Pulse Ox 100% on R/A; Weight 72.57 kg aa5 (R); Height 5 ft. 8 in. (172.72 cm) (R); 21:20 BP 99 / 72; Pulse 64; Resp 17 S; Pulse Ox 98% on R/A; ca1 18:52 Body Mass Index 24.33 (72.57 kg, 172.72 cm) aa5 ED Course: 18:47 Patient arrived in ED. as 18:51 Triage completed. aa5 18:52 Arm band placed on. aa5 19:02 Reji Echeverria MD is Attending Physician. rn 19:05 Patient has correct armband on for positive identification. Placed in gown. Bed in low ca1 position. Call light in reach. Side rails up X 1. Pulse ox on. NIBP on. Warm blanket given. 19:17 Urine Microscopic Only Sent. rv 19:29 Ultrasound completed. Patient tolerated poorly. Note: Pt in too much pain to hold still sg3 for exam , nurse gave pain med. 19:31 Evon Bravo, RN is Primary Nurse. ca1 19:54 CT Stone Protocol In Process Unspecified. EDMS 19:57 US Pelvis Complete In Process Unspecified. EDMS 22:08 No provider procedures requiring assistance completed. IV discontinued, intact, ca1 bleeding controlled, No redness/swelling at site. Pressure dressing applied. Administered Medications: 19:31 Drug: Zofran 4 mg Route: IVP; Site: right antecubital; ca1 21:19 Follow up: Response: No adverse reaction; Nausea is decreased ca1 19:33 Drug: morphine 4 mg Route: IVP; Site: right antecubital; ca1 20:15 Follow up: Response: No adverse reaction; Pain is unchanged, physician notified ca1 20:21 Drug: Demerol 25 mg Route: IVP; Site: right antecubital; ca1 21:19 Follow up: Response: No adverse reaction; Pain is decreased ca1 21:10 Drug: Macrobid 100 mg Route: PO; ca1 21:40 Follow up: Response: No adverse reaction ca1 Outcome: 21:47 Discharge ordered by . rn 22:08 Discharged to home ambulatory, with family. ca1 22:08 Condition: stable 22:08 Discharge instructions given to patient, Instructed on discharge instructions, follow up and referral plans. medication usage, Demonstrated understanding of instructions, follow-up care, medications, Prescriptions given X 3. 22:08 Patient left the ED. ca1 Signatures: Dispatcher [employer] Ayanna Grady Roman, MD MD rn Calderon, Audri, RN RN aa5 Le Moreira sg3 Gregory Kitchen RN RN rv Evon Bravo RN RN ca1 Corrections: (The following items were deleted from the chart) 18:55 18:50 Presenting complaint: Patient states: "I just had sex and started having a sharp aa5 shooting pain in my vagina shooting up to my uterus". Pt states "I have an cyst and I have endometriosis" aa5 18:55 18:50 Acuity: NABIL 3 aa5 aa5
[2019-02-25 22:45] VITALS: TEMP 98.8
[2019-02-25 22:49] VITALS: BP 99/72; O2SAT 98
== END 2019-02-25 22:08 | disposition home or self-care (01) ==
LOC: ER 18:46
DX: N83.209 Unspecified ovarian cyst, unspecified side (principal)
CPT/HCPCS: 36415; 74176; 76377; 76856; 80048; 80076; 81003; 81015; 81025; 83690; 85025; 87077; 87086; 87088; 87186; 96374; 96375; 99284; J2175; J2405

== ENCOUNTER 2021-07-24 15:13 | Emergency (ER) | payer OTHER, SELFPAY ==
--- OUTSIDE RECORDS SUMMARY | 2021-07-24 15:16 | XMS REPORT | Continuity of Care Document ---
:1995 Author Organization [facility] t Address [address] [place] [address] Dr. Murdock [address] [place] [id number] Care Team Providers Name Role Phone Unavailable Unavailable Unavailable Problems This patient has no known problems. Allergies, Adverse Reactions, Alerts This patient has no known allergies or adverse reactions. Medications This patient has no known medications. Procedures This patient has no known procedures. Results This patient has no known results.
[2021-07-24 19:16] LABS: SARS-COV-2 RT PCR POSITIVE (NEGATIVE)
--- NOTE | 2021-07-24 19:33 | ER ---
Nurse's Notes [facility] Name: Mary Lou Garcia Age: 25 yrs Sex: Female : 1995 Arrival Date: 07/24/2021 Time: 15:34 Bed 9 Private MD: Diagnosis: Coronavirus infection, unspecified Presentation: 07/24 17:34 Chief complaint: Patient states: cough , headache, runny nose, sons were exposed to iw COVID at school, pt is due to give in 3 days. Risk Assessment: Do you want to hurt yourself or someone else? Patient reports no desire to harm self or others. 17:34 Acuity: NABIL 4 iw 17:34 Method Of Arrival: Ambulatory iw 17:35 Coronavirus screen: Ebola Screen: Patient negative for fever greater than or equal to iw 101.5 degrees Fahrenheit, and additional compatible Ebola Virus Disease symptoms Patient denies exposure to infectious person. Patient denies travel to an Ebola-affected area in the 21 days before illness onset. No symptoms or risks identified at this time. Initial Sepsis Screen: Does the patient meet any 2 criteria? No. Patient's initial sepsis screen is negative. Does the patient have a suspected source of infection?. 22:13 Onset of symptoms was July 24, 2021. iw Triage Assessment: 18:00 General: Appears in no apparent distress. Behavior is calm, cooperative. iw Historical: - Allergies: 17:36 Sulfa (Sulfonamide Antibiotics); iw - PMHx: 17:36 Anxiety; Bipolar disorder; Endometrosis; PCOS; iw - Immunization history:: Adult Immunizations Client reports having NOT received the Covid vaccine. - Social history:: Smoking status: . Screenin:00 Abuse screen: Denies threats or abuse. Denies injuries from another. Nutritional iw screening: No deficits noted. Tuberculosis screening: No symptoms or risk factors identified. Fall Risk None identified. Assessment: 17:40 General: Appears in no apparent distress. Behavior is calm, cooperative. Pain: Denies iw pain. Neuro: Level of Consciousness is awake, alert, obeys commands, Oriented to person, place, time, situation, Moves all extremities. Full function. Cardiovascular: Patient's skin is warm and dry. Respiratory: Reports cough that is Respiratory effort is even, unlabored, Respiratory pattern is regular. Derm: Skin is intact, is healthy with good turgor. Musculoskeletal: Range of motion: intact in all extremities. Vital Signs: 17:35 Pulse 100; Resp 18 S; Temp 98.1; Pulse Ox 100% on R/A; iw 17:37 BP 109 / 72; iw ED Course: 15:34 Patient arrived in ED. ds1 17:24 Johnson Nelson PA is PHCP. [facility] 17:24 Kevin Rodríguez MD is Attending Physician. [facility] 17:34 Triage completed. iw 17:40 Arm band placed on. iw 17:40 Patient has correct armband on for positive identification. iw 19:44 No provider procedures requiring assistance completed. Patient did not have IV access iw during this emergency room visit. 19:45 Mally Morrissey, RN is Primary Nurse. iw Administered Medications: No medications were administered Outcome: 19:32 Discharge ordered by . [facility] 19:44 Discharged to home ambulatory. iw 19:44 Condition: good 19:44 Discharge instructions given to patient, Instructed on discharge instructions, follow up and referral plans. Demonstrated understanding of instructions, follow-up care. 19:45 Patient left the ED. iw Signatures: Johnson Nelson PA PA Julissa Choudhury ds1 Mally Morrissey, RN RN iw Corrections: (The following items were deleted from the chart) 17:36 17:34 Chief complaint: Patient states: cough , headache, runny nose, sons were exposed iw to COVID at school iw
--- NOTE | 2021-07-24 19:33 | EDPHYS ---
Physician Documentation [facility] Name: Mary Lou Garcia Age: 25 yrs Sex: Female : 1995 Arrival Date: 07/24/2021 Time: 15:34 Bed 9 Private MD: ED Physician Kevin Rodríguez HPI: 07/24 18:12 This 25 yrs old Female presents to ER via Ambulatory with complaints of Cough.jmm 18:12 The patient or guardian reports cough. Onset: The symptoms/episode began/occurred jmm gradually, 1 day(s) ago. Modifying factors: The symptoms are alleviated by nothing, the symptoms are aggravated by nothing. Associated signs and symptoms: Pertinent positives: fever, nausea, sore throat. This is a 25-year-old female with a history of anxiety, bipolar, PCOS currently 8 months the presents emerged part with cough, congestion, fever, body aches. Patient states her sons have similar symptoms and was recently exposed to COVID-19. Patient is on immunized for COVID-19. Historical: - Allergies: 17:36 Sulfa (Sulfonamide Antibiotics); iw - PMHx: 17:36 Anxiety; Bipolar disorder; Endometrosis; PCOS; iw - Immunization history:: Adult Immunizations Client reports having NOT received the Covid vaccine. - Social history:: Smoking status: . ROS: 18:12 Constitutional: Positive for body aches, fever. jmm 18:12 Respiratory: Positive for cough, shortness of breath. 18:12 All other systems are negative. Exam: 18:12 Constitutional: This is a well developed, well nourished patient who is awake, alert, jmm and in no acute distress. Head/Face: atraumatic. Eyes: EOMI, no conjunctival erythema appreciated ENT: Moist Mucus Membranes Neck: Trachea midline, Supple Chest/axilla: Normal chest wall appearance and motion. Cardiovascular: Regular rate and rhythm. No edema appreciated Respiratory: Normal respirations, no respiratory distress appreciated Abdomen/GI: Non distended, soft Back: Normal ROM Skin: General appearance color normal MS/ Extremity: Moves all extremities, no obvious deformities appreciated, no edema noted to the lower extremities Neuro: Awake and alert, normal gait Psych: Behavior is normal, Mood is normal, Patient is cooperative and pleasant Vital Signs: 17:35 Pulse 100; Resp 18 S; Temp 98.1; Pulse Ox 100% on R/A; iw 17:37 BP 109 / 72; iw MDM: 17:50 Patient medically screened. [facility] 19:31 Data reviewed: vital signs, nurses notes. Counseling: I had a detailed discussion with jmvesta the patient and/or guardian regarding: the historical points, exam findings, and any diagnostic results supporting the discharge/admit diagnosis, lab results, the need for outpatient follow up, to return to the emergency department if symptoms worsen or persist or if there are any questions or concerns that arise at home. ED course: Patient denied Regeneron. 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 Patient is otherwise given strict return precautions. Patient understood and agrees plan of care.. 07/24 19:16 Order name: COVID-19/FLU A+B; Complete Time: 19:16 EDMS Administered Medications: No medications were administered Disposition: 22:06 Co-signature as Attending Physician, Kevin Rodríguez MD I agree with the assessment and kdr plan of care. Disposition Summary: 07/24/21 19:32 Discharge Ordered Location: Home [facility] Condition: Stable [facility] Diagnosis - Coronavirus infection, unspecified [facility] Followup: jm - With: Private Physician - When: 2 - 3 days - Reason: Recheck today's complaints, Continuance of care, Re-evaluation by your physician Discharge Instructions: - Discharge Summary Sheet [facility] - COVID-19 [facility] Forms: - Medication Reconciliation Form [facility] - Thank You Letter [facility] - Antibiotic Education [facility] - Prescription Opioid Use [facility] Signatures: Dispatcher [employer] [facility] Kevin Rodríguez MD MD [facility] Johnson Nelson PA PA [facility] Mally Morrissey, SIGRID RN iw Corrections: (The following items were deleted from the chart) 18:05 17:51 Influenza Screen (A ordered. EDUT EDUT 18:05 17:51 Influenza Screen (A \T\ B)+BA.LAB.BRZ ordered. [facility] EDUT
[2021-07-24 19:50] VITALS: TEMP 98.1; O2SAT 100
[2021-07-24 19:52] VITALS: BP 109/72
== END 2021-07-24 19:45 | disposition home or self-care (01) ==
LOC: ER 15:13
DX: O98.511 Other viral diseases complicating pregnancy, first trimester (principal); U07.1 COVID-19; Z3A.08 8 weeks gestation of pregnancy; Z88.2 Allergy status to sulfonamides
CPT/HCPCS: 0240U; 99281

== ENCOUNTER 2024-03-29 06:02 | Day surgery (SDC) | payer OTHER ==
[2024-03-26 11:35] LABS: Absolute Eosinophils 0.1 K/uL (0-0.5); Absolute Lymphocytes (CBC) 2.2 K/uL (0.7-4.9); Absolute Monocytes 0.4 K/uL (0.1-1.3); Absolute Neutrophil 2.1 K/uL (1.8-8.0); Basophils % 0.8 % (0-1.3); Eosinophils % 1.2 % (0-4.4); Hematocrit 36.1 % (36.0-45.0); Hemoglobin 12.1 g/dL (12.0-15.0); Lymphocytes % 46.1 % (15.3-44.8); MCHC 33.6 g/dL (32.0-36.0); MCV 89.2 fL (80-100); MPV 7.8 fL (7.6-11.3); Monocytes % 7.4 % (3.3-12.3); Neutrophils % 44.5 % (41.7-73.7); Platelets 344 thou/uL (152-406); RBC Red Blood Cell Count 4.05 M/uL (3.86-4.86); Red Cell Distribution Width 12.8 % (12.1-15.2)
[2024-03-26 11:41] LABS: PT Prothrombin Time 10.7 SECONDS (9.5-12.5); PTT, Activated Partial Thromb 30.7 SECONDS (24.3-36.9); Protime INR 0.97
[2024-03-26 11:45] LABS: Specific Gravity 1.024 (1.005-1.030); Urine Bilirubin NEGATIVE (Negative); Urine Blood Negative (Negative); Urine Clarity Clear (Clear); Urine Color Light-Yellow (Yellow); Urine Glucose NEGATIVE (Negative); Urine Ketones NEGATIVE (Negative); Urine Microscopic Reflex YN NO UMIC; Urine Nitrite NEGATIVE (Negative); Urine Protein NEGATIVE (Negative); Urine Urobilinogen Normal (Normal)
[2024-03-26 11:51] LABS: Anion Gap 6.2 mEq/L (5.0-15.0); Potassium 4.2 mEq/L (3.5-5.1)
[2024-03-26 12:07] LABS: Atypical Lymphocytes 1 %; Blood Morphology Comment NOT SEEN (NOT SEEN); Differential Total Cells Count 100; Eosinophils 2 % (0-3); Lymphocytes 39 % (15-42); Monocytes 8 % (0-10); Platelet Estimate ADEQ; Segmented Neutrophils 49 % (40-80)
--- NOTE | 2024-03-28 18:30 | PREOPHP ---
Date of Admission: 03/29/2024 History Of Present Illness: This patient presented to my office with a chief complaint of a painful big toe joint present on the right foot. This has been present for years, throbbing in nature, moder ate in severity, improved with rest, worse with activity. The patient has taken anti-inflammatories, changed her shoe gear, all to no avail and has pain with and without shoes when ambulating. Past Medical History: Includes anemia. Past Surgical History: Includes breast implants. Family History: Including gout in her father. Social History: The patient denies tobacco, alcohol, or IV drug use. Current Medications: Include quetiapine fumarate 25 mg, sertraline 25 mg, and the patient has stoppe d her phentermine. Allergies: SULFA. Physical Examination: Vital Signs: Height is 5 feet 9 inches, weight is 175 pounds. General: The patient is healthy, well developed, well nourished, oriented x3. Vascular: Evaluation reveals dorsalis pedis and posterior tibial pulses to be 4/4 bilaterally. Capi llary refill time is less than 3 seconds. Temperature gradient is within normal limits. There is no claudication complaint. No varicosities noted bilaterally. Musculoskeletal: Evaluation reveals normal muscle strength to be equal and symmetrical bilaterally. Knees and ankle alignment is within normal limits. Foot structure shows rigid cavus foot type bilat erally. Subtalar joint position is normal. Forefoot position is adductus. This is a med ial eminence of the first metatarsal head bilaterally with range of motion to 80 degrees left and 70 degrees right, but abducted. There is hallux valgus noted bilaterally. Equinus is noted to be negat charlie 10 degrees bilaterally per goniometer measurement. There are no soft tissue masses and no tender ness of the plantar fascia. Skin: Evaluation reveals no rash, ulcer, tumor, or contracture except mild callus present to the sec ond MPJ bilaterally. Neurologic: Evaluation reveals deep tendon reflexes for the patella and Achilles to be 5/5 bilateral ly. Vibratory and sharp dull sensation within normal limits. Data: X-ray evaluation reveals an intermetatarsal angle of 13 degrees and hallux abductus angle of 3 0 degrees on the right foot. There is no fracture, tumor, or degenerative joint disease noted. Bone s well mineralized. Lesser metatarsals were . There is a lateral deviation of the hallux and sesamoids with increase in the intermetatarsal angle as previously noted. Diagnoses: Hallux valgus right foot. Pain in right foot. The recommended treatment is for a bunion ectomy with first metatarsal osteotomy, bicorrectional in nature with screw fixation. The patient wi ll be in postop shoe and bandages for 4 weeks, will require 8 weeks of healing. The patient understa nds the stressful and depressive nature of surgery and states that she is well managed with her medic ations. The patient uses an online psychiatric service. The patient has 3 children and stated that she has help at home with the children as was explained the healing and decreased activity necessary for her foot surgery to heal properly. The patient has stopped her phentermine 1 week prior to surge ry. The patient understands risks, benefits, and alternatives of the above-mentioned procedure inclu ding, but not limited to the risk of pain, swelling, numbness, stiffness, infection, nonhealing of sk in, soft tissue, bone, and recurrence of the deformity. The patient has declined cold therapy unit a s she has purchased her own, which was not recommended due to the type of machine. The patient has b een fitted for postop shoe and declines as she has bought her own also. The patient was g hoa a prescription for postop pain medication. Hydrocodone 5/325 every 4-6 hours as needed. The wilder dudley is scheduled for surgery at [facility] on March 29, 2024. Medical H and P will be compl eted by Anesthesia. Preop labs have been ordered. ZULLY/NÉSTOR Voice ID: [id number]
[2024-03-29] MEDS ORDERED: CEFAZOLIN SODIUM 1 GM/VIAL ONE (06:26)
[2024-03-29] MEDS: Ringers Lactate 1,000 ML IV ONE (06:38)
[2024-03-29 07:05] LABS: Urine Specific Gravity/Preg >1.030 (1.005-1.030)
[2024-03-29] MEDS ORDERED: LIDOCAINE 2% MPF 5 ML VIAL ONE (07:07)
[2024-03-29] MEDS ORDERED: ONDANSETRON 4 MG/2 ML VIAL ONE (07:07)
[2024-03-29] MEDS ORDERED: propofoL 200 MG/20 ML VIAL IV ONE (07:07)
[2024-03-29] MEDS ORDERED: FENTANYL CITR 100 MCG/2 ML ONE (07:08)
[2024-03-29] MEDS ORDERED: dexAMETHasone 4 MG/ML VIAL ONE (07:09)
[2024-03-29] MEDS ORDERED: MIDAZOLAM HCL 2 MG/2 ML INJ ONE (07:09)
[2024-03-29] MEDS ORDERED: BUPIVACAINE 0.5% PF 10 ML VIAL ONE (07:09)
[2024-03-29] MEDS ORDERED: Mastisol Adhesive Liq ONE (07:10)
[2024-03-29] MEDS ORDERED: LIDOCAINE 1% MPF 30 ML VIAL ONE (07:12)
[2024-03-29] MEDS ORDERED: dexAMETHasone 10 MG/ML VIAL ONE (08:05)
[2024-03-29] MEDS ORDERED: KETOROLAC 30 MG/ML INJ ONE (08:05)
[2024-03-29] MEDS: HYDROMORPHONE HCL 2 MG/ML inj ONE (09:19)
[2024-03-29] MEDS: HYDROCODONE/APAP 7.5/325 MG TAB ONE (10:05)
--- NOTE | 2024-03-29 10:09 | RAD REPORT ---
EXAM DESCRIPTION: RAD - Foot Right 2 View - 03/29/2024 9:29 am CLINICAL HISTORY: Foot surgery FINDINGS: Postsurgical changes first metatarsal. A screw is in place. No fracture or dislocation seen
--- NOTE | 2024-03-29 10:12 | OP ---
Date of Procedure: 03/29/2024 Surgeon: Elvin Rolon DPM Preoperative Diagnosis: Hallux valgus deformity, right foot. Postoperative Diagnosis: Hallux valgus deformity, right foot. Procedures: Bunionectomy with first metatarsal head osteotomy, bicorrectional Mehdi with screw fixa tion, 2.5 x 18 mm. Anesthesia: General. Description Of Procedure: The patient was brought into the operating room, placed on the operating t able in supine position. General anesthesia was induced. The patient was prepped and draped in usua l sterile manner. The right extremity was elevated to 60 degrees for a period of 2 minutes to exsang uinate the blood supply. Pneumatic ankle tourniquet was elevated to 250 mmHg. Attention was then di rected to the first MPJ of the right foot where a 5 cm dorsal linear incision was made over the first MPJ. Incision was deepened via sharp and blunt dissection. All neurologic structures avoided. All bleeders were clamped and bovied. An inverted L incision was made in the capsule of the first MPJ a nd dissected free from its bony attachments with a 15 blade. The medial eminence was brought into vi ew and resected utilizing an oscillating saw. The first interspace was then approached and a lateral capsulotomy and adductor tenotomy was performed. The foot was then repositioned with the knee bent and an osteotomy was created in the head of the first metatarsal with the apex distal and the arms pr oximal 60 degrees angulation. Utilizing the oscillating saw, the osteotomy was created from medial t o lateral. The capital fragment was then shifted laterally and impacted medially upon the shaft of t he first metatarsal and the remaining medial eminence was removed utilizing the oscillating saw. The osteotomy was then approached and a wedge was taken out of the medial aspect of each arm to create a n angulation correction for PASA so that the capital fragment was shifted more into varus attitude to correct the angulation deformity seen at the cartilaginous surface. Cartilage was in good condition . The head was impacted upon the shaft of the first metatarsal and fixated utilizing a 2.5 x 18 mm s crew. Utilizing the technique, the K-wire was drilled into the head of the first metatarsal just dis giuseppe to the osteotomy and angulated through the shaft. It was measured and drilled and then screwed i n. Excellent compression was obtained and fixation. The extensor hallucis brevis was then tenotomiz ed. Area was flushed with copious amounts of sterile saline after a rotary hina was used to smooth a ny rough edges. The capsular tissue was then approached with a 15 blade and with the toe held in cor rected position and a medial capsulorrhaphy was then performed. The area was flushed with copious am ounts of sterile saline again and capsular tissue was closed utilizing 2-0 Vicryl suture. Skin was c losed utilizing 4-0 Prolene in horizontal mattress suture. Toe was seen to be in excellent rectus al ignment with good range of motion in rectus alignment to 80 degrees. The foot was then injected with 9 cc of 0.5% Marcaine plain for a Nassar block at the first ray. The foot was then dressed with Adapt ic, dry sterile gauze, dry sterile Palomo, Kerlix, and Anderson bandage. Pneumatic ankle tourniquet was re leased and capillary return was seen to be instantaneous to all digits. The patient was sent to [facility] in satisfactory condition. ZULLY/NÉSTOR Voice ID: [id number] Report ID: [id number]
[2024-03-29 12:07] VITALS: BP 111/68; TEMP 97.5; O2SAT 100
== END 2024-03-29 10:30 | disposition home or self-care (01) ==
LOC: OR 06:02
PROVIDERS: ATTEND Podiatrist
PROC: 0QSN04Z Reposition Right Metatarsal with Internal Fixation Device, Open Approach (ICD-10-PCS; principal; 2024-03-29 07:30)
DX: M20.11 Hallux valgus (acquired), right foot (principal); M79.671 Pain in right foot; E11.9 Type 2 diabetes mellitus without complications
CPT/HCPCS: 36415; 80048; 81003; 81025; 85025; 85610; 85730; J0690; J1100; J1170; J2001; J2250; J2405; J2704; J3010; J7120

== ENCOUNTER 2025-09-09 18:46 | Emergency (ER) | payer OTHER ==
[2025-09-09 19:21] LABS: Absolute Lymphocytes (CBC) 2.8 K/uL (0.7-4.9); Hematocrit 35.8 % (36.0-45.0); Hemoglobin 12.1 g/dL (12.0-15.0); MCH 30.8 pg (27.0-35.0); MCHC 34.0 g/dL (32.0-36.0); MCV 90.7 fL (80-100); MPV 8.4 fL (7.6-11.3); Nucleated RBC Absolute Count 0.0 (0-0); Nucleated Red Blood Cells % 0.0 % (0-0); RBC Red Blood Cell Count 3.94 M/uL (3.86-4.86); White Blood Count 7.20 thou/uL (4.3-10.9)
[2025-09-09 19:30] LABS: Sqamous Epithelial <5 /HPF (None Seen); Urine Crystals Unidentified Few /HPF (None Seen); Urine Culture Reflex Order REFLEXED; Urine Microscopic Reflex YN ORDER UMIC; Urine WBC Clump Rare /HPF (None Seen); Urine Yeast (Budding) Occasional /HPF (None Seen)
[2025-09-09 19:38] LABS: ALT/SGPT 19 U/L (13-56); Albumin 3.3 g/dL (3.4-5.0); Albumin/Globulin Ratio 0.9 (1.1-1.8); Alkaline Phosphatase 46 U/L (45-117); Anion Gap 8.4 mEq/L (5.0-15.0); BUN Blood Urea Nitrogen 14 mg/dL (7-18); Globulin 3.6 g/dL (2.3-3.5); Glucose Level 89 mg/dL (74-106); Lipase 29 U/L (13-75); Potassium 4.4 mEq/L (3.5-5.1)
[2025-09-09 19:46] LABS: AST/SGOT < 10 U/L (15-37)
[2025-09-09] MEDS ORDERED: KETOROLAC 30 MG/ML INJ ONE (20:00)
--- NOTE | 2025-09-09 20:23 | RAD REPORT ---
EXAMINATION: Abdomen Pelvis W Contrast CLINICAL INDICATION: Female, 29 years old.ABD PAIN TECHNIQUE: CT abdomen and pelvis was performed, after the administration of [facility] Axial, sagittal and coronal reconstructions were obtained. One or more of the following dose reduction techniques were used: Automated exposure control, adjustment of the mA and/o r kV according to patient size, and/or iterative reconstruction. Unless otherwise specified, incidental findings do not require dedicated imaging follow-up. [id number]. COMPARISON: No prior exams FINDINGS: LOWER CHEST: No acute process identified. No significant pericardial effusion. Bilateral breast prost heses. Mild circumferential thickening of the distal esophagus which could reflect esophagitis.5 UPPER GI: No significant abnormality. LIVER: No significant focal abnormality. GALLBLADDER/BILE DUCTS: No biliary ductal dilatation.? PANCREAS: No mass, ductal dilation, or trini-pancreatic fluid. SPLEEN: Unremarkable. ADRENALS: No adrenal masses. KIDNEYS AND URETERS: No hydronephrosis. Mild right-sided perinephric stranding. ABDOMINAL AORTA AND OTHER VESSELS: Normal caliber aorta and IVC. PERITONEUM: Nonspecific free fluid. LYMPH NODES: No pathologic lymphadenopathy. ABDOMINAL WALL: Unremarkable SMALL BOWEL/COLON: Small bowel has normal course and caliber. No colonic wall thickening or pericolon ic inflammatory changes. Normal appendix. URINARY BLADDER: Nonspecific circumferential bladder wall thickening. REPRODUCTIVE ORGANS: No pathologic process. MUSCULOSKELETAL: No acute or suspicious osseous abnormality. ADDITIONAL FINDINGS: None. IMPRESSION: Nonspecific bladder wall thickening could indicate cystitis. Correlate with urinalysis. No hydronephr osis or urinary tract calculi. Normal appendix.
--- NOTE | 2025-09-09 20:26 | ER ---
Nurse's Notes [facility] Name: Mary Lou Garcia Age: 29 yrs Sex: Female : 1995 Arrival Date: 09/09/2025 Time: 18:46 Bed 5 Private MD: Diagnosis: Acute cystitis with hematuria Presentation: 09/09 18:57 Chief complaint: Patient states: she has had dysuria, urinary frequency, bilateral me1 flank pain and her urine is cloudy with a foul odor for about a week. Today patient has had hematuria. Coronavirus screen: At this time, the client does not indicate any symptoms associated with coronavirus-19. Ebola Screen: No symptoms or risks identified at this time. Initial Sepsis Screen: Does the patient meet any 2 criteria? No. Patient's initial sepsis screen is negative. Does the patient have a suspected source of infection? No. Patient's initial sepsis screen is negative. Risk Assessment: Do you want to hurt yourself or someone else? Patient reports no desire to harm self or others. Onset of symptoms is unknown. 18:57 Method Of Arrival: Ambulatory nd1 18:57 Acuity: NABIL 3 me1 Historical: - Allergies: 18:58 Sulfa (Sulfonamide Antibiotics); me1 - PMHx: 18:58 Anxiety; Bipolar disorder; Endometrosis; PCOS; me1 - PSHx: 18:58 section; me1 - Immunization history:: Adult Immunizations up to date. - Infectious Disease History:: Denies. - Social history:: Smoking status: Patient denies any tobacco usage or history of. Screenin:05 [facility] ED Fall Risk Assessment (Adult) History of falling in the last 3 months, nh2 including since admission No falls in past 3 months (0 pts) Confusion or Disorientation No (0 pts) Intoxicated or Sedated No (0 pts) Impaired Gait No (0 pts) Mobility Assist Device Used No (0 pt) Altered Elimination No (0 pt) Score/Fall Risk Level 0 - 2 = Low Risk Oriented to surroundings, Maintained a safe environment, Educated pt \T\ family on fall prevention, incl call for assistance when getting out of bed, Assessed \T\ reinforced patient's understanding of fall precautions. Abuse screen: Denies threats or abuse. Denies injuries from another. Nutritional screening: No deficits noted. Tuberculosis screening: No symptoms or risk factors identified. Assessment: 19:05 General: Appears uncomfortable, Behavior is cooperative, restless. Pain: Complains of nh2 pain in suprapubic region Pain radiates to left low back and right low back Pain currently is 8 out of 10 on a pain scale. Quality of pain is described as aching, Pain began 1 week ago Is intermittent. Neuro: Level of Consciousness is awake, alert, Oriented to person, place, time, situation, Appropriate for age. Cardiovascular: Denies chest pain, Patient's skin is warm and dry. Respiratory: Respiratory effort is even, unlabored, Denies shortness of breath. GI: Abdomen is round non-distended. : Reports burning with urination, blood clots in urine. EENT: No signs and/or symptoms were reported regarding the EENT system. Derm: Skin is pink, warm \T\ dry. Musculoskeletal: Circulation, motion, and sensation intact. Range of motion: intact in all extremities. 19:55 Reassessment: pt transported to CT. nh2 20:05 Reassessment: Pt back from CT, reconnected to monitor. call light placed in reach. nh2 Vital Signs: 18:57 BP 112 / 77; Pulse 87; Resp 18; Temp 98.4; Pulse Ox 100% ; Weight 68.04 kg; Height 5 me1 ft. 9 in. ; 19:25 BP 114 / 83; Pulse 73; Resp 18; Temp 98.9(O); Pulse Ox 100% on R/A; nh2 20:14 BP 101 / 65; Pulse 81; Resp 18; Pulse Ox 100% on R/A; nh2 18:57 Body Mass Index 22.15 (68.04 kg, 175.26 cm) me1 ED Course: 18:49 Patient arrived in ED. al6 18:51 Lindy Cordero FNP-C is [facility]. kb 18:51 Reji Echeverria MD is Attending Physician. kb 18:58 Triage completed. me1 18:58 Arm band placed on Patient placed in an exam room. me1 19:05 Patient has correct armband on for positive identification. Bed in low position. Call nh2 light in reach. Side rails up X 1. Provided Education on: using call light for assistance. 19:05 No provider procedures requiring assistance completed. Inserted saline lock: 20 gauge nh2 in right antecubital area, using aseptic technique. Blood collected. Flushed with 10 mL NS. 19:06 Wolfgang Mansfield Jr, RN is Primary Nurse. nh2 20:03 CT Abd/Pelvis - IV Contrast Only In Process Unspecified. EDMS 20:14 Urine Culture Sent. nh2 20:37 IV discontinued, intact, bleeding controlled, No redness/swelling at site. Pressure nh2 dressing applied. Administered Medications: 20:14 Drug: Ketorolac IVP 15 mg IVP once Route: IVP; Site: right antecubital; nh2 20:37 Follow up: Response: No adverse reaction; Pain is decreased nh2 20:36 Drug: Amoxicillin-Clavulanate PO 875 mg PO once Route: PO; nh2 20:36 Follow up: Response: Medication administered at discharge. nh2 Medication: 19:05 VIS not applicable for this client. nh2 Outcome: 20:26 Discharge ordered by . kb 20:37 Discharged to home ambulatory, with family, nh2 20:37 Condition: stable 20:37 Discharge instructions given to patient, Instructed on discharge instructions, follow up and referral plans. medication usage, Demonstrated understanding of instructions, follow-up care, medications, Prescriptions given X 1, 20:38 Patient left the ED. nh2 Signatures: Dispatcher [employer] EDMS Lindy Cordero, WHEAT INSPECTOR-C WHEAT INSPECTOR-Queenie Taylor RN RN nd1 Wolfgang Mansfield Jr, RN RN nh2 Kelly Sesay6 Corrections: (The following items were deleted from the chart) 19:00 18:57 Pulse 87bpm; Resp 18bpm; Pulse Ox 100%; Temp 98.4F; 68.04 kg; Height 5 ft. 9 in.; me1 BMI: 22.1; nd1 19:57 19:05 : Reports burning with urination, nh2 nh2
--- NOTE | 2025-09-09 20:26 | EDPHYS ---
Physician Documentation [facility] Name: Mary Lou Garcia Age: 29 yrs Sex: Female : 1995 Arrival Date: 09/09/2025 Time: 18:46 Bed 5 Private MD: ED Physician Reji Echeverria HPI: 09/09 20:48 This 29 yrs old Female presents to ER via Ambulatory with complaints of Urinary kb Problem, Low Back Pain. 20:48 Patient is a 29-year-old female who presents for dysuria, cloudy urine with a foul odor kb that started about a week ago with hematuria that started today. States her analytical manager told her she could see her tomorrow but patient was concerned about the blood so she elected to come to the ER for more urgent treatment. Denies fever. States she has had some nausea and vomited once yesterday.. Historical: - Allergies: 18:58 Sulfa (Sulfonamide Antibiotics); me1 - PMHx: 18:58 Anxiety; Bipolar disorder; Endometrosis; PCOS; me1 - PSHx: 18:58 section; me1 - Immunization history:: Adult Immunizations up to date. - Infectious Disease History:: Denies. - Social history:: Smoking status: Patient denies any tobacco usage or history of. ROS: 20:46 Constitutional: As per HPI kb Exam: 20:46 Constitutional: This is a well developed, well nourished patient who is awake, alert, kb and in no acute distress. Head/Face: Normocephalic, atraumatic. ENT: Moist Mucous membranes Cardiovascular: Regular rate Respiratory: Respirations even and unlabored. No increased work of breathing. Talking in full sentences Skin: Warm, dry with normal turgor. Normal color. MS/ Extremity: Pulses equal, no cyanosis. Neurovascular intact. Full, normal range of motion. Neuro: Awake and alert, GCS 15, oriented to person, place, time, and situation. 20:46 Abdomen/GI: Inspection: abdomen appears normal, Bowel sounds: normal, Palpation: soft, in all quadrants, moderate abdominal tenderness, in the right lower quadrant and left lower quadrant, Vital Signs: 18:57 BP 112 / 77; Pulse 87; Resp 18; Temp 98.4; Pulse Ox 100% ; Weight 68.04 kg; Height 5 me1 ft. 9 in. ; 19:25 BP 114 / 83; Pulse 73; Resp 18; Temp 98.9(O); Pulse Ox 100% on R/A; nh2 20:14 BP 101 / 65; Pulse 81; Resp 18; Pulse Ox 100% on R/A; nh2 18:57 Body Mass Index 22.15 (68.04 kg, 175.26 cm) me1 MDM: 18:51 Medical Screening Exam initiated kb 20:47 Differential diagnosis: uti, pyelonephritis, kidney stone, cystitis. Data reviewed: kb vital signs, nurses notes. Counseling: I had a detailed discussion with the patient and/or guardian regarding the historical points, exam findings, and any diagnostic results supporting the discharge/admit diagnosis, lab results, radiology results, the need for outpatient follow up, a family practitioner, to return to the emergency department if symptoms worsen or persist or if there are any questions or concerns that arise at home. 09/09 18:52 Order name: UA Rfx Humphrey Cult if indicated; Complete Time: 19:32 kb 09/09 18:52 Order name: Test, Urine; Complete Time: 19:31 kb 09/09 18:58 Order name: CBC with Diff; Complete Time: 19:26 kb 09/09 18:58 Order name: CMP; Complete Time: 19:50 kb 09/09 18:58 Order name: Lipase; Complete Time: 19:50 kb 09/09 19:34 Order name: Urine Culture EDTN 09/09 18:58 Order name: CT Abd/Pelvis - IV Contrast Only; Complete Time: 20:25 kb 09/09 18:58 Order name: IV Saline Lock; Complete Time: 19:17 kb 09/09 18:58 Order name: Labs collected and sent; Complete Time: 19:17 kb Administered Medications: 20:14 Drug: Ketorolac IVP 15 mg IVP once Route: IVP; Site: right antecubital; nh2 20:37 Follow up: Response: No adverse reaction; Pain is decreased nh2 20:36 Drug: Amoxicillin-Clavulanate PO 875 mg PO once Route: PO; nh2 20:36 Follow up: Response: Medication administered at discharge. nh2 Disposition Summary: 09/09/25 20:26 Discharge Ordered Notes: Location: Home kb Condition: Stable kb Diagnosis - Acute cystitis with hematuria kb Followup: kb - With: Emergency Department - When: As needed - Reason: Worsening of condition Followup: kb - With: Private Physician - When: 2 - 3 days - Reason: Recheck today's complaints, Continuance of care, Re-evaluation by your physician Discharge Instructions: - Discharge Summary Sheet kb - Urinary Tract Infection, Adult, [id number] kb Forms: - Medication Reconciliation Form kb - Antibiotic Education kb - Prescription Opioid Use kb - Patient Portal Instructions kb - Leadership Thank You Letter kb Prescriptions: - Augmentin 875-125 mg Oral Tablet - take 1 tablet ORAL route every 12 hours for 10 days; 20 tablet; Refills: 0, kb Product Selection Permitted Signatures: Dispatcher [employer] EDMS Lindy Cordero, ARNALDO-C Queenie Cornejo RN RN il1 Wolfgang Mansfield Jr RN RN [facility] Corrections: (The following items were deleted from the chart) 20:48 20:48 Patient is a 29-year-old female who presents for dysuria, cloudy urine with a kb foul odor that started about a week ago with hematuria that started today. States her analytical manager told her she could see her tomorrow but patient was concerned about the blood so she elected to come to the ER for more urgent treatment. Denies fever.. kb
[2025-09-09] MEDS ORDERED: AMOX/K CLAV 875 MG TAB ONE (20:28)
[2025-09-10 04:45] VITALS: O2SAT 100
[2025-09-10 04:48] VITALS: TEMP 98.9
[2025-09-10 04:49] VITALS: BP 101/65
== END 2025-09-09 20:38 | disposition home or self-care (01) ==
LOC: ER 18:46
DX: N30.01 Acute cystitis with hematuria (principal); R30.0 Dysuria; M54.50 Low back pain, unspecified; F41.9 Anxiety disorder, unspecified; F31.9 Bipolar disorder, unspecified
CPT/HCPCS: 87088; 85025; 81001; 87086; 36415; 81025; 83690; 80053; 74177; 96374; 99284; Q9967; J1885; 87077; 87186